=== PATIENT | female | born 1985 | race Caucasian/White ===

== ENCOUNTER 2019-09-06 22:10 | Emergency (ER) | payer OTHER, SELFPAY ==
[2019-09-06 22:11] VITALS: BP 163/85; PULSE 113; RESP 18; TEMP 36.7; O2SAT 100
--- NOTE | 2019-09-06 22:36 | ED.GENADULT ---
HPI - General Adult General Chief complaint: Recheck/Abnormal Lab/Rx Stated complaint: SWELLING; HI B/P, SENT BY PCP Time Seen by Provider: 09/06/19 22:24 History of Present Illness HPI narrative: She reports that she saw Dr. Sanders 3 4 days ago and was told that she needed to come to the [facility] right away because she was carrying 30 pounds of extra water weight. She reports that she does have some swelling in the lower legs bilaterally, worse on the right than left. She denies any pain, injury, SOB. Related Data Home Medications Medication Instructions Recorded Confirmed No Home Medications 09/06/19 09/06/19 Allergies Allergy/AdvReac Type Severity Reaction Status Date / Time Penicillins Allergy Unknown Unknown Verified 09/06/19 22:37 Review of Systems Review of Systems: All systems reviewed & are unremarkable except as noted in HPI and below Constitutional: Constitutional: Denies chills and Denies fever(s) Cardiovascular: Cardiovascular: Denies chest pain Respiratory: Respiratory: Denies dyspnea Gastrointestinal: Gastrointestinal: Denies abdominal pain Neurologic: Denies numbness and Denies weakness [facility] Social History Social History Gender identity (if verbalized by the patient): Female Exam Const: General: healthy appearing, no acute distress and alert Orientation/consciousness: patient oriented x3 HENMT: Head: normal to inspection Neck: Neck: normal visual inspection and no lymphadenopathy Chest: Chest palpation & inspection: no tenderness Resp: Effort & Inspection: normal respiratory effort Auscultation: clear to auscultation bilaterally, no rales, no rhonchi and no wheezes Cardio: Jugular venous distension: no JVD Rate: regular rate Rhythm: regular rhythm Heart sounds: no murmurs GI: Inspection: non-distended GI Palp: Yes Soft to palpation and No Tenderness to palpation present (GI) Skin: General skin exam: normal color Neuro: General: patient oriented x3, moves all extremities and CN's II-XI intact bilaterally Speech: normal speech Extrem: Other: significant varicose veins of right lower leg with trace ankle edema. Left leg grossly normal. Psych: Appearance: well kempt Affect: normal affect Course Vital Signs Vital signs: Vital Signs Temperature 36.7 C 09/06/19 22:11 Pulse Rate 113 H 09/06/19 22:11 Respiratory Rate 18 09/06/19 22:11 Blood Pressure 163/85 H 09/06/19 22:11 Pulse Oximetry 100 09/06/19 22:11 Temperature 36.7 C 09/06/19 22:11 Pulse Rate 82 09/07/19 01:55 Respiratory Rate 16 09/07/19 01:55 Blood Pressure 139/88 09/07/19 01:55 Pulse Oximetry 99 09/07/19 01:55 Medical Decision Making MDM Narrative Medical decision making narrative: Exam raised concern for DVT. D-dimer negative making this unlikely. I was planning to do a bedside US, but I was unable to because she needed to leave for work. Medical Records Medical records reviewed: Yes I reviewed the patient's medical records. Vital Signs Vital Signs: Vital Signs Temperature 36.7 C 09/06/19 22:11 Pulse Rate 113 H 09/06/19 22:11 Respiratory Rate 18 09/06/19 22:11 Blood Pressure 163/85 H 09/06/19 22:11 Pulse Oximetry 100 09/06/19 22:11 Temperature 36.7 C 09/06/19 22:11 Pulse Rate 82 09/07/19 01:55 Respiratory Rate 16 09/07/19 01:55 Blood Pressure 139/88 09/07/19 01:55 Pulse Oximetry 99 09/07/19 01:55 Lab Data Lab results reviewed: Yes I reviewed the patient's lab results. Result diagrams: 09/06/19 23:00 09/06/19 23:00 Labs: Lab Results 09/06/19 09/06/19 09/06/19 Range/Units 23:00 23:00 23:00 WBC 9.9 (4.5-10.0) K/mm3 RBC 4.53 (4.2-5.4) M/mm3 Hgb 12.7 (12.0-15.0) g/dL Hct 40.5 (37.0-47.0) % MCV 89.4 (80-100) fl MCH 28.0 (26-34) pg MCHC 31.4 L (32-36) g/dl RDW 14.0 (11.5-14.5) % Plt Co
[2019-09-06 22:38] VITALS: BP 157/106; PULSE 93; RESP 20; O2SAT 99
[2019-09-06 23:09] LABS: Basophils Absolute Auto 0.1 K/mm3 (0.0-0.1); Basophils Percent Auto 0.5 % (0.2-1.2); Eosinophils Absolute Auto 0.1 K/mm3 (0-0.3); Eosinophils Percent Auto 0.6 % (0-4.4); Hematocrit 40.5 % (37.0-47.0); Hemoglobin 12.7 g/dL (12.0-15.0); Immature Granulocyte Absolute 0.03 K/mm3 (0.00-0.031); Immature Granulocyte Percent A 0.3 % (0-0.5); Lymphocytes Absolute Auto 2.34 K/mm3 (0.9-3.2); Lymphocytes Percent Auto 23.7 % (18.3-44.2); Mean Corpuscular HGB Conc 31.4 g/dl (32-36); Mean Corpuscular Volume 89.4 fl (80-100); Mean Platelet Volume 11.9 fl (7.4-10.4); Monocytes Absolute Auto 0.7 K/mm3 (0.1-0.6); Monocytes Percent Auto 6.9 % (2.6-8.5); Neutrophils Absolute Auto 6.7 K/mm3 (1.3-6.7); Platelet Count Result 195 k/mm3 (150-375); Red Blood Count 4.53 M/mm3 (4.2-5.4); White Blood Count 9.9 K/mm3 (4.5-10.0)
[2019-09-06 23:13] LABS: INR 0.9; Prothrombin Time 12.1 Seconds (11.1-14.7)
[2019-09-06 23:14] LABS: Partial Thromboplastin Time 35.3 SECONDS (22.3-36.8)
[2019-09-06 23:16] LABS: Blood Urea Nitrogen 10 mg/dL (7-17); Calcium 9.4 mg/dL (8.4-10.2); Carbon Dioxide 30 mmol/L (22-30); Chloride 102 mmol/L (98-107); Estimated CRCL calculation 108 ml/min; Estimated Glomerular Filt Rate > 60; Glucose 114 mg/dL (65-105); Potassium 3.9 mmol/L (3.4-5.0); Sodium 135 mmol/L (137-145)
[2019-09-06 23:39] LABS: D Dimer 0.27 ug/mL (<0.48)
[2019-09-07 00:58] VITALS: BP 150/97; PULSE 95; RESP 18; O2SAT 100
[2019-09-07 01:21] VITALS: BP 144/85; PULSE 88; RESP 16; O2SAT 100
[2019-09-07 01:55] VITALS: BP 139/88; PULSE 82; RESP 16; O2SAT 99
== END 2019-09-07 01:57 | disposition home or self-care (01) ==
PROVIDERS: Emergency Provider Emergency Medicine; PCP Emergency Medicine
DX: M79.89 Other specified soft tissue disorders (principal)
CPT/HCPCS: 36415; 80048; 85025; 85380; 85610; 85730; 99283

== ENCOUNTER 2019-09-10 17:32 | Outpatient (CLI) | payer OTHER, SELFPAY ==
--- NOTE | ~2019-09-10 | XR_ITS ---
EXAMINATION: XR chest 2V DATE: 09/10/2019 18:05 INDICATION: Hypertension, diffuse edema and abnormal EKG. TECHNIQUE: PA and lateral views of the chest were obtained. COMPARISON: None FINDINGS: The lungs are clear with no focal airspace opacities, pulmonary edema, pleural effusion or pneumothor ax. The cardiomediastinal silhouette is normal. Visualized bones and soft tissues are unremarkable. IMPRESSION: 1. Normal chest radiograph. Reviewed, dictated and finalized at location A. IMPRESSION: 1. Normal chest radiograph.
[2019-09-10 18:11] LABS: Cholesterol 169 mg/dL (0-200); HDL Direct 49 mg/dL; Triglycerides 93 mg/dL (<150)
[2019-09-10 18:18] LABS: Hemoglobin A1C 5.7 % (<5.7)
[2019-09-10 18:22] LABS: LDL Cholesterol Direct 94 mg/dL
[2019-09-10 18:30] LABS: Creatinine Urine 193.6 mg/dL
[2019-09-10 18:43] LABS: MALB Creatinine Ratio < 3.1 mg/g (0-30); Microalbumin Urine Random < 6.0 mg/L (0-16.7)
[2019-09-10 19:25] LABS: Free T4 Free Thyroxine 0.82 ng/mL (0.78-2.19)
== END 2019-09-10 17:33 | disposition home or self-care (01) ==
PROVIDERS: PCP Emergency Medicine; Visit Provider Emergency Medicine
DX: R60.9 Edema, unspecified (principal); I10 Essential (primary) hypertension
CPT/HCPCS: 36415; 71046; 80061; 82043; 83036; 84439; 84443